=== PATIENT | female | born 1940 | race Caucasian/White ===

== ENCOUNTER 2017-07-28 10:31 | Inpatient (IN) | payer MEDICARE, BC ==
[~2017-07-28] VITALS: Ht 165.1 cm; Wt 53.8 kg
[2017-08-12] VITALS (27 sets, daily range): BP systolic 91–120; BP diastolic 56–76; PULSE 68–91; RESP 10–22; Ht 165.1 cm; Wt 53.8 kg
[2017-08-12] MEDS ORDERED: FENTAnyl 50 MCG/ML VIAL ONE (09:38)
[2017-08-12] MEDS ORDERED: ROCURONIUM 50 MG INJ ONE (09:38)
[2017-08-12] MEDS ORDERED: CEFAZOLIN 1 GM INJ ONE (09:38)
[2017-08-12] MEDS ORDERED: PROPOFOL 100 ML ONE (09:38)
[2017-08-12] MEDS ORDERED: GELATIN SIZE 100 SPONGE ONE (11:08)
[2017-08-12] MEDS ORDERED: SURGIFOAM POWDER 1 GM KIT ONE (11:08)
[2017-08-12] MEDS ORDERED: BUPIVACAINE 0.5%/EPI (SDV) 30 ML INJ ONE (11:08)
[2017-08-12] MEDS ORDERED: THROMBIN 5000 UNIT VIAL ONE (11:09)
[2017-08-12] MEDS ORDERED: POLYMYXIN/BACITRACIN 1L IRRIG ONE (11:09)
[2017-08-12] MEDS ORDERED: ATOR20TA38 PO (11:27)
[2017-08-12] MEDS ORDERED: AMLO5TAB4 PO (11:28)
[2017-08-12] MEDS ORDERED: LEVO88TA42 PO (11:28)
[2017-08-12] MEDS ORDERED: ATEN-51 PO (11:29)
[2017-08-12] MEDS ORDERED: MIRT15TA5 PO (11:31)
[2017-08-12] MEDS ORDERED: CLON0.5T4 PO (11:32)
[2017-08-12] MEDS ORDERED: CEFAZOLIN 2 GM/50 ML (PMX) 50 ML IVPB SCH (12:00)
[2017-08-12] MEDS ORDERED: LACTATED RINGER'S 1,000 ML IV* SCH (12:00)
[2017-08-12] MEDS ORDERED: BUPIVACAINE 0.5%/EPI (SDV) 30 ML INJ INJ ONE (12:13)
[2017-08-12] MEDS ORDERED: POLYMYXIN/BACITRACIN 1L IRRIG IRR ONE (12:13)
[2017-08-12] MEDS ORDERED: GELATIN SIZE 100 SPONGE TOP ONE (12:14)
[2017-08-12] MEDS ORDERED: THROMBIN 5000 UNIT VIAL TOP ONE (12:14)
[2017-08-12] MEDS ORDERED: PHENYLephrine (100 MCG/ML) 5ML SYG ONE ×2 (12:21→13:50)
[2017-08-12] MEDS ORDERED: METOCLOPRAMIDE 10 MG INJ ONE (13:25)
[2017-08-12] MEDS ORDERED: ACETAMINOPHEN 1000MG/100ML IV 100 ML ONE (13:25)
[2017-08-12] MEDS ORDERED: SUGAMMADEX SODIUM 200 MG/2 ML VIAL IV ONE (13:25)
[2017-08-12] MEDS ORDERED: ONDANSETRON 4 MG INJ ONE (13:25)
[2017-08-12] MEDS ORDERED: DEXAMETHASONE 4 MG/ML 1 ML INJ ONE (13:25)
[2017-08-12] MEDS ORDERED: hydrALAzine 20 MG INJ ONE (13:26)
[2017-08-12] MEDS ORDERED: ONDANSETRON 4 MG INJ IV PRN ×2 (15:00→15:30)
[2017-08-12] MEDS ORDERED: ALBUMIN HUMAN 5% 250 ML IV PRN (15:00)
[2017-08-12] MEDS ORDERED: HYDROmorphONE 0.5 MG/0.5 ML SYG IV PRN ×3 (15:00→15:30)
[2017-08-12] MEDS ORDERED: HYDROmorphONE 1 MG/ML SYG IV PRN (15:00)
[2017-08-12] MEDS ORDERED: hydrALAzine 20 MG INJ IV PRN (15:00)
[2017-08-12] MEDS ORDERED: FENTAnyl 50 MCG/ML VIAL IV PRN ×3 (15:00)
[2017-08-12] MEDS ORDERED: DIPHENHYDRAMINE 50 MG INJ IV PRN ×2 (15:00→15:30)
[2017-08-12] MEDS ORDERED: EPHEDrine SULFATE 50 MG/5 ML SYG IV PRN (15:00)
[2017-08-12] MEDS ORDERED: LABETALOL HCL 20MG INJ IV PRN (15:00)
[2017-08-12] MEDS ORDERED: METOCLOPRAMIDE 10 MG INJ IV PRN (15:00)
[2017-08-12] MEDS ORDERED: MEPERIDINE 25 MG INJ IV PRN (15:00)
--- NOTE | 2017-08-12 15:14 | SIPON ---
Date/Time of Note Date/Time of Note DATE: 08/12/17 TIME: 15:13 Operative Report Preoperative Diagnosis cervical stenosis and myelopathy Postoperative Diagnosis cervical stenosis and myelopathy Operation/Procedure Performed posterior cervical decompression and fusion Surgeon see signature line assistant infant teacher saranya Anesthesia: general Estimated blood loss: 100 - 150 ml's Transfusion Required none Specimen none Grafts/Implants cervical screws Complications none LESLEY QUEEN MD Aug 12, 2017 15:14
[2017-08-12] MEDS ORDERED: NALOXONE (0.4 MG/ML) INJ IV PRN (15:30)
[2017-08-12] MEDS ORDERED: ACETAMINOPHEN 325 MG TAB PO PRN (15:30)
[2017-08-12] MEDS ORDERED: AL HYDROX/MG HYDROX/SIMETH 30 ML CUP PO PRN (15:30)
[2017-08-12] MEDS ORDERED: ZOLPIDEM 5 MG TAB PO PRN (15:30)
[2017-08-12] MEDS ORDERED: CEPASTAT LOZENGE MT PRN (15:30)
[2017-08-12] MEDS ORDERED: CYCLOBENZAPRINE 10 MG TAB PO PRN (15:30)
[2017-08-12] MEDS ORDERED: BISACODYL 10 MG SUPP PR PRN (15:30)
[2017-08-12] MEDS: D5W-0.45 NACL + KCL 20 MEQ 1,000 ML IV SCH (16:09)
[2017-08-12] MEDS: CEFAZOLIN 1 GM/50 ML (PMX) 50 ML IVPB SCH ×2 (16:14→23:27)
--- NOTE | 2017-08-12 16:35 | RADRPT ---
PROCEDURE: XR fluoro guidance CLINICAL INDICATION: Posterior cervical decompression and fusion TECHNIQUE: Fluoroscopy performed. 5 images submitted. Total fluoro time: 16 seconds COMPARISON: None. FINDINGS: Posterior instrumentation and posterior fusion hardware at C3-C5 demonstrated. See operative report for details. IMPRESSION: Fluoroscopic guidance for cervical spine surgery. RPTAT: VV .Oscar Corbin MD, Date Time Electronically viewed and signed by .Oscar Corbin MD, on 08/12/2017 16:35 .O/
--- NOTE | 2017-08-12 17:32 | OPR ---
DATE OF OPERATION: 08/12/2017 PREOPERATIVE DIAGNOSIS: Cervical stenosis with myelopathy. POSTOPERATIVE DIAGNOSIS: Cervical stenosis with myelopathy. OPERATION PERFORMED: 1. C3-C4 and C4-C5 decompression with decompression of C3, C4, C5 nerve roots bilaterally. 2. Placement of cervical lateral mass screws at C3, C4, C5 bilaterally. 3. Posterolateral fusion at C3-C4 and C4-C5. 4. Use of autograft. 5. Use of C-arm fluoroscopy with interpretation without radiologist present. 6. Intraoperative neuromonitoring (2 hours). PRIMARY SURGEON: Aries Suarez MD CANDY DECORATOR: Jason Tate MD SECOND FIREARMS ASSEMBLY SUPERVISOR: RAULITO Bae NEED FOR FIREARMS ASSEMBLY SUPERVISOR: Building Components Designer surgeon was required in order to help with decompression and retraction of the neurovascular elements. This is required due to the complexity of the procedure. ESTIMATED BLOOD LOSS: 150 mL. DRAINS: 1 SPECIMENS: None. COMPLICATIONS OF PROCEDURES: None. ANESTHESIOLOGIST: Katia. TYPE OF ANESTHESIA: General. INDICATIONS FOR PROCEDURE: This is a 77-year-old female with cervical myelopathy. She failed nonoperative measures and therefore it was recommended that she undergo the above procedure. Preoperatively we discussed the risks, benefits, and alternatives. She understood and wished to proceed. DESCRIPTION OF PROCEDURE IN DETAIL: The patient was identified in the preoperative holding area, given Ancef antibiotic, taken to the operating room, where she was successfully placed under general anesthesia. Neuromonitoring leads were placed, sequential compressive devices were applied. Arita catheter was introduced. An attempt was made for placement of an art line, but this was unsuccessful. The patient was placed on the operating table in prone position over bolsters. Arms were secured at the side. The base of the skull was shaved. The neck was then prepped and draped in usual sterile fashion. I injected Marcaine and epinephrine into the skin and paraspinal musculature. An incision was then made posteriorly and incision was taken down to the dorsal fascia. I then subperiosteally dissected the C2, C3, C4, and C5 lamina. I then performed a central decompression at C3-C4, C4-C5 and C5-C6 and a sublaminar decompression at C2. This was done in order to alleviate the stenosis which had resulted in myelopathy. I decompressed the lateral recess and decompressed the neural foramina bilaterally to decompress the C3, C4 and C5 nerve roots. Nerve signals remained normal throughout the procedure. Intraoperative neuromonitoring was performed by [employer] and start time was 1 p.m.; closure time was 3 p.m. Once the decompression was completed, I placed lateral mass screws at C3, C4 and C5 bilaterally with placement of the rods with set screws with final tightening. I took final AP and lateral images and I was happy with placement of the hardware and alignment of the spine. I then irrigated the wound. I took the local lamina and I placed this in the posterolateral region for posterolateral fusion at C3-C4 and C4-C5. I then placed a deep subfascial drain. I closed the deep fascia with #1-0 Vicryl stitch. I placed a 2-0 nylon drain stitch. I then closed subcutaneous tissue with a 2-0 Vicryl stitch. A 4-0 Monocryl closure was then performed. Dermabond and sterile dressings were then applied. The patient was then awakened from anesthesia and taken to ICU in stable condition. Lap, sponge, and instrument counts were correct x2. There were no apparent complications during the procedure. The patient will be admitted to the ICU for neurovascular checks and observation , as well as antibiotics and physical therapy. Dictated By: ARIES MONTALOV/GERMAN Conf#: [id number] DID#: [id number] CC: HONG GARDNER; JASON TATE MD;*EndCC* MTDD
[2017-08-12] MEDS: HYDROmorphONE 0.2 MG/ML PCA IV SCH (18:08)
[2017-08-12] MEDS: DOCUSATE SODIUM 100 MG CAP PO SCH (21:52)
[2017-08-13] VITALS (33 sets, daily range): BP systolic 90–168; BP diastolic 65–93; PULSE 75–99; RESP 10–22
[2017-08-13] MEDS: D5W-0.45 NACL + KCL 20 MEQ 1,000 ML IV SCH ×3 (02:58→23:00)
--- NOTE | 2017-08-13 05:40 | RADRPT ---
PROCEDURE: MR Cervical Spine without intravenous contrast CLINICAL INDICATION: Posterior fusion C3-C5 performed on 08/12/2017. COMPARISON: Intraoperative fluoroscopic images of the same date. TECHNIQUE: Multiplanar multi-sequence MRI of the cervical spine. FINDINGS: Alignment: 2 mm anterolisthesis of C3 relative to C4, 1 mm anterolisthesis of C4 relative to C5, 4 mm anterolisthesis of C7 relative to T1, 4 mm anterolisthesis of T1 relative to T2. Vertebral bodies: Chronic mild vertebral body height loss of C7. Bone marrow: Normal. Discs: Severe disc space loss C5-C6 and C6-C7. Moderate disc space loss C3-C4 and C4-C5. Spinal cord: Normal morphology and signal. Degenerative change: Moderate to severe spondylotic changes at C5-C6 and C6-C7. C2-C3 : No central canal or foraminal narrowing. C3-C4 : . 2 mm broad-based disc osteophyte ridge eccentric to the right of midline. The central lanette l and foramina are adequately patent. C4-C5 : 2 mm broad-based disc osteophyte ridge. No central canal or foraminal narrowing. C5-C6 : 2 mm broad-based disc osteophyte ridge. The central canal and foramina are adequately hoyos nt. C6-C7 : 2.5 mm broad-based disc osteophyte ridge eccentric far right lateral. Superimposed 3 mm left central disc protrusion. There is mild central canal stenosis with the AP diameter measuring 9 mm. Moderate to severe bilateral foraminal narrowing is present. C7-T1 : 3 mm broad-based disc osteophyte ridge. The central canal and foramina are adequately patent . Bilateral facet arthropathy is present. Vertebral arteries: The usual flow voids are preserved. Paravertebral soft tissues: Susceptibility artifact at the C3 - C5 levels is secondary to the prese nce of bilateral transpedicular screws. No evidence of a postsurgical fluid collection. Visualized brain: Normal. Visualized neck and lungs: Additional comment: None. IMPRESSION: 1. Posterior fusion of C3 - C5 with associated susceptibility artifact. No evidence of a postsurgic al fluid collection. 2. C6-C7: 2.5 mm broad-based disc osteophyte ridge eccentric far right lateral with superimposed 3 mm left central disc protrusion without spinal cord compression. There is mild central canal stenos is with moderate to severe bilateral foraminal narrowing. 3. Severe disc space loss C5 and C6-C7. Moderate disc space loss C3-C4 and C4-C5. 4. Moderate to severe spondylotic changes C5-C6 and C6-C7. 5. Slight anterolisthesis of C3 relative to C4, C4 relative to C5, C7 relative to T1, and T1 relati ve to T2. RPTAT: HRSR Physician Amilcar Date Time Electronically viewed and signed by Ryann Bach Physician on 08/13/2017 05:39 RR/
[2017-08-13 05:49] LABS: BASOPHILS % 0.1 % (0.0-2.0); HEMOGLOBIN 11.1 g/dl (12.0-16.0); LYMPHOCYTES # 0.7 10^3/ul (0.8-2.9); LYMPHOCYTES % 5.9 % (15.0-51.0); MEAN CORPUSCULAR HEMOGLOBIN 32.4 pg (29.0-33.0); MEAN CORPUSCULAR HGB CONC 33.6 g/dl (32.0-37.0); MEAN CORPUSCULAR VOLUME 96.2 fl (82.0-101.0); MEAN PLATELET VOLUME 10.8 fl (7.4-10.4); MONOCYTE # 0.5 10^3/ul (0.3-0.9); MONOCYTES % 3.7 % (0.0-11.0); NEUTROPHIL # 10.9 10^3/ul (1.6-7.5); NEUTROPHILS % 89.9 % (39.0-77.0); PLATELET COUNT 178 10^3/UL (140-415); RED BLOOD COUNT 3.43 10^6/ul (4.20-5.40); RED CELL DISTRIBUTION WIDTH 12.8 % (11.5-14.5); WHITE BLOOD COUNT 12.1 10^3/ul (4.8-10.8)
[2017-08-13 06:49] LABS: CALCIUM 8.9 mg/dl (8.4-10.2); CREATININE 0.77 mg/dl (0.44-1.00); MAGNESIUM 1.9 mg/dl (1.7-2.5); POTASSIUM 4.7 mmol/L (3.5-5.1)
[2017-08-13] MEDS: CEFAZOLIN 1 GM/50 ML (PMX) 50 ML IVPB SCH (07:53)
[2017-08-13] MEDS: DOCUSATE SODIUM 100 MG CAP PO SCH ×2 (08:43→21:00)
--- NOTE | 2017-08-13 10:54 | PN ---
Date/Time of Note Date/Time of Note DATE: 08/13/17 TIME: 10:54 Assessment/Plan Lines/Catheters IV Catheter Type (from Nrsg): Peripheral IV Arita in Place (from Nrsg): Yes Assessment/Plan Assessment/Plan Status post posterior decompression and instrumented cervical fusion. The patient's hands are feeling better. Has some anxiety and we will restart her Klonopin. Will transfer to 4 W. once cleared by barber apprentice. Subjective 24 Hr Interval Summary Doing well. Feels anxious. Exam/Review of Systems Vital Signs Vitals Vital Signs Date Time Temp Pulse Resp B/P Pulse Ox O2 Delivery O2 Flow Rate FiO2 08/13/17 09:30 87 15 138/82 98 08/13/17 09:00 98.4 Room Air 08/12/17 16:15 8.0 Intake and Output 08/12/17 08/12/17 08/13/17 14:59 22:59 06:59 Intake Total 2380 ml 1050 ml Output Total 720 ml 1480 ml Balance 1660 ml -430 ml Exam Free Text/Dictation Neurovascularly intact Results Result Diagram: 08/13/17 0453 08/13/17 0453 LESLEY QUEEN MD Aug 13, 2017 10:54
[2017-08-13] MEDS ORDERED: MIRTAZAPINE 15 MG TAB PO PRN (11:00)
[2017-08-13] MEDS: clonAZEPAM 0.5 MG TAB PO PRN ×2 (11:04→23:00)
[2017-08-13] MEDS: DEXAMETHASONE 10 MG/ML 1 ML INJ IV SCH ×2 (17:11→21:01)
[2017-08-13] MEDS: ATENOLOL 25 MG TAB PO SCH (17:11)
[2017-08-13] MEDS: HYDROmorphONE 0.2 MG/ML PCA IV SCH (18:42)
--- NOTE | 2017-08-13 20:31 | CONS ---
DATE OF ADMISSION: 08/12/2017 DATE OF CONSULTATION: 08/13/2017 POSTOPERATIVE MEDICAL CONSULTATIVE NOTE Thank you very much for allowing me to evaluate this 77-year-old female who just underwent cervical spine surgery. HISTORICAL EVENTS: As you well know, she was last evaluated by you in February of this year when she pr esented with tingling of her hands, but because of a recurrence of the same, and following MRI imagi ng and nerve testing, elected to proceed with surgery. In the ICU, she notes mild neck pain, mild t o moderate neck pain. Denies cough, wheezing, shortness of breath, nausea, vomiting or abdominal pa in. PAST MEDICAL HISTORY: Includes: 1. Hypertension. 2. Hyperlipidemia. 3. History of thyroid disease. 4. Psychiatric illness. 5. History of vitrectomy. 6. Hysterectomy. ALLERGIES 1. SULFA. 2. BAND-AIDS. SOCIAL HISTORY: She is an artist, , former smoker, occasionally drinks alcohol. MEDICATIONS: 1. Amlodipine 10 mg per day. 2. Atenolol 25 mg per day. 3. Atorvastatin 20 mg per day. 4. Clonazepam 0.5 at bedtime. 5. Estradiol vaginal cream. 6. Levothyroxine 88 mcg per day. 7. Mirtazapine 15 mg 1.5 tablets at night. PHYSICAL EXAMINATION: GENERAL: [place] female in no acute distress. VITAL SIGNS: BP 118/80, pulse 70, respirations are 20, she is afebrile. EYES: Extraocular muscles are full. NOSE, MOUTH AND THROAT: Normal. NECK: No JVD, thyroid enlargement or adenopathy. LUNGS: Clear. HEART: Rhythm regular, no murmur, no third or fourth sound. ABDOMEN: Nontender. Liver and spleen are not palpable. No masses or tenderness noted. EXTREMITIES: No edema. Calves nontender. IMPRESSION: 1. Stable postoperative cervical spine surgery. 2. History of hypertension. We will resume amlodipine and monitor BP throughout. 3. Hyperlipidemia. We will continue statin. 4. Hypothyroidism. We will continue thyroid replacement. 5. We will evaluate daily for signs and symptoms of thromboembolic disease. Dictated By: JAMAICA RAYMOND MD MR/NTS Conf#: [id number] DID#: [id number] CC: LESLEY QUEEN MD;*EndCC*
[2017-08-13] MEDS: AMLODIPINE 5 MG TAB PO SCH (21:00)
[2017-08-13] MEDS: ATORVASTATIN 20 MG TAB PO SCH (21:00)
[2017-08-13] MEDS ORDERED: MIRTAZAPINE 15 MG TAB PO SCH (21:00)
[2017-08-13] MEDS: MIRTAZAPINE 15 MG TAB PO SCH (21:01)
[2017-08-14 02:00] VITALS: BP 149/72; RESP 18
[2017-08-14 05:15] LABS: BASOPHILS % 0.1 % (0.0-2.0); HEMATOCRIT 36.4 % (37.0-47.0); LYMPHOCYTES # 0.6 10^3/ul (0.8-2.9); LYMPHOCYTES % 5.2 % (15.0-51.0); MEAN CORPUSCULAR HEMOGLOBIN 31.5 pg (29.0-33.0); MEAN CORPUSCULAR VOLUME 95.5 fl (82.0-101.0); MEAN PLATELET VOLUME 10.6 fl (7.4-10.4); MONOCYTE # 0.2 10^3/ul (0.3-0.9); MONOCYTES % 1.8 % (0.0-11.0); NEUTROPHIL # 11.2 10^3/ul (1.6-7.5); PLATELET COUNT 176 10^3/UL (140-415); RED BLOOD COUNT 3.81 10^6/ul (4.20-5.40); RED CELL DISTRIBUTION WIDTH 12.8 % (11.5-14.5); WHITE BLOOD COUNT 12.2 10^3/ul (4.8-10.8)
[2017-08-14 05:32] LABS: NEUTROPHILS % 92.2 % (39.0-77.0)
[2017-08-14 05:48] LABS: CALCIUM 9.3 mg/dl (8.4-10.2); CREATININE 0.68 mg/dl (0.44-1.00); POTASSIUM 4.9 mmol/L (3.5-5.1)
[2017-08-14] MEDS: clonAZEPAM 0.5 MG TAB PO PRN ×2 (06:45→20:29)
[2017-08-14] MEDS: D5W-0.45 NACL + KCL 20 MEQ 1,000 ML IV SCH ×2 (06:45→17:13)
[2017-08-14] MEDS: DEXAMETHASONE 10 MG/ML 1 ML INJ IV SCH (06:45)
--- NOTE | 2017-08-14 07:48 | PN ---
Date/Time of Note Date/Time of Note DATE: 08/14/17 TIME: 07:46 Assessment/Plan Lines/Catheters IV Catheter Type (from Nrsg): Peripheral IV Arita in Place (from Nrsg): No Assessment/Plan Assessment/Plan s/p posterior cervical decompression and fusion POD #2 doing well anticipate D/C drain tomorrow, D/C home tomorrow continue PT, ambulate, pain control today case management - home health Subjective 24 Hr Interval Summary patient feeling better, pain improving, arm symptoms improving Exam/Review of Systems Vital Signs Vitals Vital Signs Date Time Temp Pulse Resp B/P Pulse Ox O2 Delivery O2 Flow Rate FiO2 08/14/17 05:00 18 08/14/17 02:00 98.5 77 149/72 94 08/13/17 21:00 Room Air 08/12/17 16:15 8.0 Intake and Output 08/13/17 08/13/17 08/14/17 15:00 23:00 07:00 Intake Total 1200 ml 1160 ml 1260 ml Output Total 900 ml 1380 ml 1815 ml Balance 300 ml -220 ml -555 ml Exam Free Text/Dictation AOx3 NVID drain intact, output 95cc Results Result Diagram: 08/14/17 0429 08/14/17 0430 HONG GARDNER PA-C Aug 14, 2017 07:48
--- NOTE | 2017-08-14 07:51 | CONS ---
Date/Time of Note Date/Time of Note DATE: 08/14/17 TIME: 07:50 Assessment/Plan Assessment/Plan Additional Assessment/Plan 1. Doing very well post op cx spine surgery. 2. Anxiety is much improved. 3. Labs rev Consultation Date/Type/Reason Admit Date/Time Aug 12, 2017 at 11:07 Initial Consult Date Detailed Summary Respiratory: No cough, No shortness of breath Cardiovascular: No chest pain Gastrointestinal: no complaints Genitourinary: no complaints Musculoskeletal: neck pain (mild) Exam/Review of Systems Vital Signs Vitals Vital Signs Date Time Temp Pulse Resp B/P Pulse Ox O2 Delivery O2 Flow Rate FiO2 08/14/17 05:00 18 08/14/17 02:00 98.5 77 149/72 94 08/13/17 21:00 Room Air 08/12/17 16:15 8.0 Intake and Output 08/13/17 08/13/17 08/14/17 15:00 23:00 07:00 Intake Total 1200 ml 1160 ml 1260 ml Output Total 900 ml 1380 ml 1815 ml Balance 300 ml -220 ml -555 ml Exam Neck: No jvd Respiratory: clear to auscultation Cardiovascular: regular rate and rhythm Gastrointestinal: soft Extremities: No edema (and no calf tend) Results Result Diagram: 08/14/17 0429 08/14/17 0430 Results 24 hrs Laboratory Tests Test 08/14/17 04:29 08/14/17 04:30 White Blood Count 12.2 H Red Blood Count 3.81 L Hemoglobin 12.0 Hematocrit 36.4 L Mean Corpuscular Volume 95.5 Mean Corpuscular Hemoglobin 31.5 Mean Corpuscular Hemoglobin Concent 33.0 Red Cell Distribution Width 12.8 Platelet Count 176 Mean Platelet Volume 10.6 H Neutrophils % 92.2 H Lymphocytes % 5.2 L Monocytes % 1.8 Eosinophils % 0.0 Basophils % 0.1 Nucleated Red Blood Cells % 0.0 Neutrophils # 11.2 H Lymphocytes # 0.6 L Monocytes # 0.2 L Eosinophils # 0.0 Basophils # 0.0 Nucleated Red Blood Cells # 0.0 Sodium Level 141 Potassium Level 4.9 Chloride Level 104 Carbon Dioxide Level 29 Anion Gap 13 Blood Urea Nitrogen 11 Creatinine 0.68 Glucose Level 165 Calcium Level 9.3 Magnesium Level 2.0 Medications Medications Current Medications Lactated Ringer's 1,000 ml @ 0 mls/hr Q0M IV* ; Start 08/12/17 at 12:00 Potassium Chloride/Dextrose/ Sod Cl (D5-1/2ns + KCl 20 Meq) 1,000 ml @ 100 mls/ hr Q10H IV Last administered on 08/14/17 06:45; Admin Dose 100 MLS/HR; Start 08/12/17 at 15:13 Acetaminophen/ Hydrocodone Bitart ([place] (10/325)) 1 tab Q4H PRN PO PAIN LEVEL 1-5; Start 08/13/17 at 10:00 Acetaminophen/ Hydrocodone Bitart ([place] (10/325)) 2 tab Q4H PRN PO PAIN LEVEL 6-10; Start 08/13/17 at 10:00 Hydromorphone HCl (Dilaudid) 0.2 mg Q1H PRN IV BREAKTHROUGH PAIN; Start at 15:30 Ondansetron HCl (Zofran Inj) 4 mg Q6H PRN IV NAUSEA AND/OR VOMITING; Start at 15:30 Bisacodyl (Dulcolax Supp) 10 mg DAILY PRN [place] CONSTIPATION; Start 08/12/17 at 15:30 Docusate Sodium (Colace) 100 mg BID PO Last administered on 08/13/17 21:00; Admin Dose 100 MG; Start 08/12/17 at 21:00 Al Hydrox/Mg Hydrox/Simethicone (Mag-Al Plus) 15 ml Q6H PRN PO CONSTIPATION/ DYSPEPSIA; Start 08/12/17 at 15:30 Acetaminophen (Tylenol Tab) 650 mg Q4H PRN PO GOMEZ OR TEMP GREATER THAN 101.3F Last administered on 08/12/17 23:27; Admin Dose 650 MG; Start 08/12/17 at 15: 30 Cyclobenzaprine HCl (Flexeril) 10 mg TID PRN PO MUSCLE SPASMS Last administered on 08/12/17 19:08; Admin Dose 10 MG; Start 08/12/17 at 15:30 Phenol (Cepastat Lozenge) 1 lozenge PRN PRN [place] SORE THROAT; Start 08/12/17 at 15:30 Diphenhydramine HCl (Benadryl) 25 mg Q6H PRN IV ITCHING; Start 08/12/17 at 15: 30 Naloxone HCl (Narcan) 0.2 mg Q2M PRN IV RR 8 BREATHS/MIN OR LESS; Start at 15:30 Hydromorphone HCl (Dilaudid TRANSPORTATION DISPATCHER) TRANSPORTATION DISPATCHER to be started in PACU Q4PCA IV Last administered on 08/13/17 18:42; Admin Dose 6 MG; Start 08/12/17 at 15:30 Miscellaneous Information 1. Hold TRANSPORTATION DISPATCHER at 1,000... TRANSPORTATION DISPATCHER IV ; Start 08/12/17 at 15 :30 Dexamethasone (Decadron) 10 mg Q8 IV Last administered on 08/14/17 06:45; Admin Dose 10 MG; Start 08/13/17 at 16:00 Clonazepam (Klonopin) 0.5 mg Q8H PRN PO ANXIETY Last administered on 06:45; Admin Dose 0.5 MG; Start 08/13/17 at 11:00 Amlodipine Besylate (Norvasc) 5 mg BID PO Last administered on 08/13/17 21:00 ; Admin Dose 5 MG; Start 08/13/17 at 21:00 Atenolol (Tenormin) 25 mg DAILY PO Last administered on 08/13/17 17:11; Admin Dose 25 MG; Start 08/13/17 at 16:00 Atorvastatin Calcium (Lipitor) 20 mg QHS PO Last administered on 08/13/17 21: 00; Admin Dose 20 MG; Start 08/13/17 at 21:00 Mirtazapine (Remeron) 22.5 mg HS PO Last administered on 08/13/17 21:01; Admin Dose 22.5 MG; Start 08/13/17 at 21:00 JAMAICA RAYMOND MD Aug 14, 2017 07:51
[2017-08-14 08:22] VITALS: BP 128/73; PULSE 73; RESP 16
[2017-08-14] MEDS: DOCUSATE SODIUM 100 MG CAP PO SCH ×2 (09:24→20:28)
[2017-08-14] MEDS: ATENOLOL 25 MG TAB PO SCH (09:29)
[2017-08-14] MEDS: AMLODIPINE 5 MG TAB PO SCH ×2 (09:29→20:28)
[2017-08-14] MEDS: HYDROCODONE/APAP (10/325) TAB PO PRN ×2 (10:05→18:10)
[2017-08-14] MEDS ORDERED: DIPHENHYDRAMINE 1%/ZINC 28.3 GM CR TOP PRN (15:00)
[2017-08-14] MEDS ORDERED: DIPHENHYDRAMINE 25 MG CAP PO PRN (15:00)
[2017-08-14 15:33] VITALS: BP 152/69; RESP 19
[2017-08-14 19:54] VITALS: BP 127/62; PULSE 74; RESP 16
[2017-08-14] MEDS: ATORVASTATIN 20 MG TAB PO SCH (20:27)
[2017-08-14] MEDS: MIRTAZAPINE 15 MG TAB PO SCH (20:29)
[2017-08-15 02:00] VITALS: BP 136/65; RESP 18
[2017-08-15] MEDS: D5W-0.45 NACL + KCL 20 MEQ 1,000 ML IV SCH ×3 (03:13→23:13)
[2017-08-15] MEDS: HYDROCODONE/APAP (10/325) TAB PO PRN ×5 (04:54→18:15)
[2017-08-15 04:56] VITALS: BP 152/76; PULSE 78; RESP 18
[2017-08-15 05:09] LABS: BASOPHILS % 0.1 % (0.0-2.0); EOSINOPHILS % 0.1 % (0.0-7.0); HEMATOCRIT 33.7 % (37.0-47.0); HEMOGLOBIN 11.3 g/dl (12.0-16.0); LYMPHOCYTES # 1.8 10^3/ul (0.8-2.9); LYMPHOCYTES % 14.7 % (15.0-51.0); MEAN CORPUSCULAR HEMOGLOBIN 32.4 pg (29.0-33.0); MEAN CORPUSCULAR HGB CONC 33.5 g/dl (32.0-37.0); MEAN CORPUSCULAR VOLUME 96.6 fl (82.0-101.0); MEAN PLATELET VOLUME 10.7 fl (7.4-10.4); MONOCYTE # 0.7 10^3/ul (0.3-0.9); MONOCYTES % 5.7 % (0.0-11.0); NEUTROPHIL # 9.8 10^3/ul (1.6-7.5); PLATELET COUNT 170 10^3/UL (140-415); RED BLOOD COUNT 3.49 10^6/ul (4.20-5.40); RED CELL DISTRIBUTION WIDTH 13.2 % (11.5-14.5); WHITE BLOOD COUNT 12.4 10^3/ul (4.8-10.8)
[2017-08-15 05:34] LABS: CREATININE 0.76 mg/dl (0.44-1.00); POTASSIUM 4.3 mmol/L (3.5-5.1)
[2017-08-15 07:44] VITALS: BP 124/81; PULSE 72; RESP 20
--- NOTE | 2017-08-15 08:06 | PN ---
Date/Time of Note Date/Time of Note DATE: 08/15/17 TIME: 08:05 Assessment/Plan Lines/Catheters IV Catheter Type (from Nrsg): Saline Lock Arita in Place (from Nrsg): No Assessment/Plan Assessment/Plan s/p cervical decompression and fusion. Drain removed. Need pain control and PT. change release manager to arrange home health vs. ARU. Subjective 24 Hr Interval Summary increased neck pain overnight Exam/Review of Systems Vital Signs Vitals Vital Signs Date Time Temp Pulse Resp B/P Pulse Ox O2 Delivery O2 Flow Rate FiO2 08/15/17 07:44 97.7 72 20 124/81 96 Room Air 08/12/17 16:15 8.0 Intake and Output 08/14/17 08/14/17 08/15/17 15:00 23:00 07:00 Intake Total 300 ml 820 ml 480 ml Output Total 650 ml 715 ml Balance 300 ml 170 ml -235 ml Exam Free Text/Dictation improved hand symptoms Results Result Diagram: 08/15/17 0438 08/15/17 0438 LESLEY QUEEN MD Aug 15, 2017 08:06
--- NOTE | 2017-08-15 08:44 | CONS ---
Date/Time of Note Date/Time of Note DATE: 08/15/17 TIME: 08:42 Assessment/Plan Assessment/Plan Additional Assessment/Plan 1. Stable post op cx spine surgery. 2. Hyperlipidemia, statin has been continued 3. Elev WBC, will check u/a and cult (received Decadron periop) 4. Anxiety, much improved. Consultation Date/Type/Reason Admit Date/Time Aug 12, 2017 at 11:07 Detailed Summary ENT: other (mild diff swallowing) Respiratory: No cough, No shortness of breath Cardiovascular: chest pain Musculoskeletal: neck pain (moderate) Exam/Review of Systems Vital Signs Vitals Vital Signs Date Time Temp Pulse Resp B/P Pulse Ox O2 Delivery O2 Flow Rate FiO2 08/15/17 07:44 97.7 72 20 124/81 96 Room Air 08/12/17 16:15 8.0 Intake and Output 08/14/17 08/14/17 08/15/17 15:00 23:00 07:00 Intake Total 300 ml 820 ml 480 ml Output Total 650 ml 715 ml Balance 300 ml 170 ml -235 ml Exam Neck: No jvd Respiratory: clear to auscultation Cardiovascular: regular rate and rhythm Gastrointestinal: soft Extremities: No edema, No tenderness Results Result Diagram: 08/15/17 0438 08/15/17 0438 Results 24 hrs Laboratory Tests Test 08/15/17 04:38 White Blood Count 12.4 H Red Blood Count 3.49 L Hemoglobin 11.3 L Hematocrit 33.7 L Mean Corpuscular Volume 96.6 Mean Corpuscular Hemoglobin 32.4 Mean Corpuscular Hemoglobin Concent 33.5 Red Cell Distribution Width 13.2 Platelet Count 170 Mean Platelet Volume 10.7 H Neutrophils % 79.0 H Lymphocytes % 14.7 L Monocytes % 5.7 Eosinophils % 0.1 Basophils % 0.1 Nucleated Red Blood Cells % 0.0 Neutrophils # 9.8 H Lymphocytes # 1.8 Monocytes # 0.7 Eosinophils # 0.0 Basophils # 0.0 Nucleated Red Blood Cells # 0.0 Sodium Level 141 Potassium Level 4.3 Chloride Level 103 Carbon Dioxide Level 31 Anion Gap 11 Blood Urea Nitrogen 20 Creatinine 0.76 Glucose Level 93 # Calcium Level 9.0 Magnesium Level 2.0 Medications Medications Current Medications Lactated Ringer's 1,000 ml @ 0 mls/hr Q0M IV* ; Start 08/12/17 at 12:00 Potassium Chloride/Dextrose/ Sod Cl (D5-1/2ns + KCl 20 Meq) 1,000 ml @ 100 mls/ hr Q10H IV Last administered on 08/14/17 06:45; Admin Dose 100 MLS/HR; Start 08/12/17 at 15:13 Acetaminophen/ Hydrocodone Bitart ([place] (10/325)) 1 tab Q4H PRN PO PAIN LEVEL 1-5; Start 08/13/17 at 10:00 Acetaminophen/ Hydrocodone Bitart ([place] (10/325)) 2 tab Q4H PRN PO PAIN LEVEL 6-10 Last administered on 08/15/17 04:54; Admin Dose 2 TAB; Start 08/13/17 at 10:00 Hydromorphone HCl (Dilaudid) 0.2 mg Q1H PRN IV BREAKTHROUGH PAIN; Start at 15:30 Ondansetron HCl (Zofran Inj) 4 mg Q6H PRN IV NAUSEA AND/OR VOMITING; Start at 15:30 Bisacodyl (Dulcolax Supp) 10 mg DAILY PRN [place] CONSTIPATION; Start 08/12/17 at 15:30 Docusate Sodium (Colace) 100 mg BID PO Last administered on 08/14/17 20:28; Admin Dose 100 MG; Start 08/12/17 at 21:00 Al Hydrox/Mg Hydrox/Simethicone (Mag-Al Plus) 15 ml Q6H PRN PO CONSTIPATION/ DYSPEPSIA; Start 08/12/17 at 15:30 Acetaminophen (Tylenol Tab) 650 mg Q4H PRN PO GOMEZ OR TEMP GREATER THAN 101.3F Last administered on 08/12/17 23:27; Admin Dose 650 MG; Start 08/12/17 at 15: 30 Cyclobenzaprine HCl (Flexeril) 10 mg TID PRN PO MUSCLE SPASMS Last administered on 08/12/17 19:08; Admin Dose 10 MG; Start 08/12/17 at 15:30 Phenol (Cepastat Lozenge) 1 lozenge PRN PRN MT SORE THROAT; Start 08/12/17 at 15:30 Diphenhydramine HCl (Benadryl) 25 mg Q6H PRN IV ITCHING; Start 08/12/17 at 15: 30 Naloxone HCl (Narcan) 0.2 mg Q2M PRN IV RR 8 BREATHS/MIN OR LESS; Start at 15:30 Hydromorphone HCl (Dilaudid FENCE POST DRIVER) FENCE POST DRIVER to be started in PACU Q4PCA IV Last administered on 08/13/17 18:42; Admin Dose 6 MG; Start 08/12/17 at 15:30 Miscellaneous Information 1. Hold FENCE POST DRIVER at 1,000... FENCE POST DRIVER IV ; Start 08/12/17 at 15 :30 Clonazepam (Klonopin) 0.5 mg Q8H PRN PO ANXIETY Last administered on 20:29; Admin Dose 0.5 MG; Start 08/13/17 at 11:00 Amlodipine Besylate (Norvasc) 5 mg BID PO Last administered on 08/14/17 20:28 ; Admin Dose 5 MG; Start 08/13/17 at 21:00 Atenolol (Tenormin) 25 mg DAILY PO Last administered on 08/14/17 09:29; Admin Dose 25 MG; Start 08/13/17 at 16:00 Atorvastatin Calcium (Lipitor) 20 mg QHS PO Last administered on 08/14/17 20: 27; Admin Dose 20 MG; Start 08/13/17 at 21:00 Mirtazapine (Remeron) 22.5 mg HS PO Last administered on 08/14/17 20:29; Admin Dose 22.5 MG; Start 08/13/17 at 21:00 Diphenhydramine/ Zinc Oxide (Benadryl 1% Cr) 1 applic Q6H PRN TOP ITCHING Last administered on 08/14/17 16:46; Admin Dose 1 APPLIC; Start 08/14/17 at 15:00 Diphenhydramine HCl (Benadryl) 25 mg Q6H PRN PO ITCHING; Start 08/14/17 at 15: 00 JAMAICA RAYMOND MD Aug 15, 2017 08:44
[2017-08-15] MEDS: ATENOLOL 25 MG TAB PO SCH (09:28)
[2017-08-15] MEDS: DOCUSATE SODIUM 100 MG CAP PO SCH ×2 (09:28→21:14)
[2017-08-15] MEDS: AMLODIPINE 5 MG TAB PO SCH ×2 (09:29→21:00)
[2017-08-15] MEDS: clonAZEPAM 0.5 MG TAB PO PRN (13:24)
[2017-08-15 13:56] LABS: ADD UMIC NO; UR ASCORBIC ACID NEGATIVE (NEGATIVE); UR BILIRUBIN (Dip) NEGATIVE (NEGATIVE); UR BLOOD (Dip) NEGATIVE (NEGATIVE); UR CLARITY CLEAR (CLEAR); UR COLOR YELLOW (YELLOW); UR GLUCOSE (Dip) NEGATIVE (NEGATIVE); UR KETONES (Dip) NEGATIVE (NEGATIVE); UR LEUKOCYTE ESTERASE (Dip) NEGATIVE Leu/ul (NEGATIVE); UR NITRITE (Dip) NEGATIVE (NEGATIVE); UR SPECIFIC GRAVITY (Dip) 1.015 (1.003-1.030); UR TOTAL PROTEIN (Dip) NEGATIVE (NEGATIVE); UR UROBILINOGEN (Dip) NEGATIVE (NEGATIVE)
[2017-08-15 15:25] VITALS: BP 96/57; PULSE 75; RESP 16
[2017-08-15 19:40] VITALS: BP 94/50; RESP 20
[2017-08-15] MEDS: MIRTAZAPINE 15 MG TAB PO SCH (21:14)
[2017-08-15] MEDS: ATORVASTATIN 20 MG TAB PO SCH (21:14)
[2017-08-16] MEDS: HYDROCODONE/APAP (10/325) TAB PO PRN ×4 (00:11→14:46)
[2017-08-16] MEDS: clonAZEPAM 0.5 MG TAB PO PRN ×2 (00:59→10:34)
[2017-08-16 02:20] VITALS: BP 144/65; RESP 20
[2017-08-16 05:21] LABS: BASOPHIL # 0.1 10^3/ul (0.0-0.1); BASOPHILS % 0.7 % (0.0-2.0); EOSINOPHILS # 0.3 10^3/ul (0.0-0.5); EOSINOPHILS % 3.1 % (0.0-7.0); HEMATOCRIT 32.1 % (37.0-47.0); HEMOGLOBIN 10.9 g/dl (12.0-16.0); LYMPHOCYTES # 2.4 10^3/ul (0.8-2.9); LYMPHOCYTES % 26.5 % (15.0-51.0); MEAN CORPUSCULAR HEMOGLOBIN 32.4 pg (29.0-33.0); MEAN CORPUSCULAR VOLUME 95.5 fl (82.0-101.0); MEAN PLATELET VOLUME 10.5 fl (7.4-10.4); MONOCYTE # 0.7 10^3/ul (0.3-0.9); MONOCYTES % 7.4 % (0.0-11.0); NEUTROPHIL # 5.6 10^3/ul (1.6-7.5); NEUTROPHILS % 61.6 % (39.0-77.0); PLATELET COUNT 168 10^3/UL (140-415); RED BLOOD COUNT 3.36 10^6/ul (4.20-5.40); RED CELL DISTRIBUTION WIDTH 12.8 % (11.5-14.5); WHITE BLOOD COUNT 9.1 10^3/ul (4.8-10.8)
[2017-08-16 08:00] VITALS: BP 126/66; RESP 19
[2017-08-16] MEDS: AMLODIPINE 5 MG TAB PO SCH (08:41)
[2017-08-16] MEDS: DOCUSATE SODIUM 100 MG CAP PO SCH (08:41)
[2017-08-16] MEDS: ATENOLOL 25 MG TAB PO SCH (08:42)
[2017-08-16] MEDS: D5W-0.45 NACL + KCL 20 MEQ 1,000 ML IV SCH (08:44)
[2017-08-16 14:00] VITALS: BP 117/80; RESP 18
--- NOTE | 2017-08-18 15:52 | DS ---
Date/Time of Note Date/Time of Note DATE: 08/18/17 TIME: 15:49 Discharge Summary Admission/Discharge Info Admit Date/Time Aug 12, 2017 at 11:07 Discharge Date/Time Aug 16, 2017 at 15:40 Discharge Diagnosis posterior cervical decompression and fusion Procedures posterior cervical decompression and fusion Hx of Present Illness Myelopathy Hospital Course The patient was admitted to the ICU after undergoing the above procedure. On post op day 1 she was transferred to the ortho wang. She had an MRI showing decompression. By post op day 4 she was deemed stable for d/c with follow-up arranged. Home Meds Reported Medications Clonazepam* (Clonazepam*) 0.5 Mg Tablet, 0.5 MG PO TID Y for ANXIETY, TAB 08/12/17 Mirtazapine* (Mirtazapine*) 15 Mg Tablet, 22.5 MG PO HS, TAB 08/12/17 Atenolol* (Atenolol*) 25 Mg Tablet, 25 MG PO DAILY, #30 TAB 08/12/17 Levothyroxine Sodium* (Levoxyl*) 88 Mcg Tablet, 88 MCG PO BEFORE BREAKFAST, #30 TAB 08/12/17 Amlodipine Besylate* (Norvasc*) 5 Mg Tablet, 5 MG PO DAILY, TAB 08/12/17 Atorvastatin Calcium* (Atorvastatin Calcium*) 20 Mg Tablet, 20 MG PO QHS, #30 TAB 08/12/17 Primary Care Provider Not On Staff Doctor LESLEY QUEEN MD Aug 18, 2017 15:52
== END 2017-08-16 15:40 | disposition home or self-care (01) | DRG 473 ==
LOC: REC 08-12 11:07 → ICU 08-12 15:25 → MS1 08-13 21:45
PROVIDERS: ADMIT Specialist; ATTEND Specialist
PROC: 01N10ZZ Release Cervical Nerve, Open Approach (ICD-10-PCS; 2017-08-12)
PROC: 4A11X4G Monitoring of Peripheral Nervous Electrical Activity, Intraoperative, External Approach (ICD-10-PCS; 2017-08-12)
PROC: 0RG2071 Fusion of 2 or more Cervical Vertebral Joints with Autologous Tissue Substitute, Posterior Approach, Posterior Column, Open Approach (ICD-10-PCS; principal; 2017-08-12 11:30)
DX: M48.02 Spinal stenosis, cervical region (principal); G54.2 Cervical root disorders, not elsewhere classified; I10 Essential (primary) hypertension; E78.5 Hyperlipidemia, unspecified; E03.9 Hypothyroidism, unspecified; F41.9 Anxiety disorder, unspecified; Z87.891 Personal history of nicotine dependence
CPT/HCPCS: 72050; 72156; 80048; 81003; 83735; 85025; 87081; 87086; 97110; 97116; 97162; 97530; C1713; J0131; J0360; J0690; J1100; J1170; J1644; J2370; J2405; J2765; J3010; J3480